=== PATIENT | female | born 1990 | race African-American/Black ===

== ENCOUNTER 2017-10-07 15:06 | Emergency (ER) | payer OTHER ==
[~2017-10-07] VITALS: Ht 170.2 cm; Wt 113.4 kg
[2017-10-07 15:11] VITALS: BP 133/81
[2017-10-07] MEDS ORDERED: Albuterol ud Inhalation HHN ONE (15:30)
--- NOTE | 2017-10-07 16:05 | Emergency Room Report ---
History of Present Illness General Chief Complaint: General Complaint Source: Patient Present Illness HPI 27-year-old female presents to the emergency department complaining of difficulty sleeping x2 weeks which has worsened over the last 3 days. 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 Patient reports that she was prescribed Valium by her primary physician and she states that it only works the first few days. She reports only sleeping up to 3 hours each time. Denies orthopnea, fevers, chills. Denies drug use. Reports some caffeine intake only when at work. Denies history of insomnia in the past for psychiatric diagnoses. Denies hallucinations or delusions no suicidal ideology or homicidal ideology. Denies CP, Palpitations, LOC or AMS. Allergies: Coded Allergies: No Known Allergies (Unverified , 10/07/17) Patient History Past Medical History: see triage record Past Surgical History: none Pertinent Family History: none Now: No Reviewed Nursing Documentation: PMH: Agreed, PSxH: Agreed Nursing Documentation-PMH Past Medical History: No Stated History Review of Systems All Other Systems: negative except mentioned in HPI Physical Exam Vital Signs Date Time Temp Pulse Resp B/P (MAP) Pulse Ox O2 Delivery O2 Flow Rate FiO2 10/07/17 15:09 97.2 87 20 133/81 96 Room Air Sp02 EP Interpretation: reviewed, normal General Appearance: no apparent distress, alert, GCS 15, non-toxic Head: normocephalic, atraumatic Eyes: bilateral eye normal inspection ENT: hearing grossly normal, normal voice Neck: full range of motion Respiratory: lungs clear, normal breath sounds, speaking full sentences Cardiovascular #1: regular rate, rhythm Rectal: deferred Musculoskeletal: back normal, gait/station normal, normal range of motion Neurologic: alert, oriented x3, responsive, motor strength/tone normal, sensory intact, normal gait, speech normal, grossly normal Psychiatric: judgement/insight normal, no suicidal/homicidal ideation, anxious - worried affect, not overly anxious or hyperactive. Skin: normal color, no rash, warm/dry, well hydrated Medical Decision Making PA Attestation Dr. Tapia is my supervising Physician whom patient management has been discussed with. Diagnostic Impression: Primary Impression: Sleep disorder Additional Impression: Sleep disorder, shift work ER Course 27-year-old female presents to the emergency department complaining of difficulty sleeping x2 weeks which has worsened over the last 3 days. 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 Patient reports that she was prescribed Valium by her primary physician and she states that it only works the first few days. She reports only sleeping up to 3 hours each time. Denies orthopnea, fevers, chills. Denies drug use. Reports some caffeine intake only when at work. Denies history of insomnia in the past for psychiatric diagnoses. Denies hallucinations or delusions no suicidal ideology or homicidal ideology. Denies CP, Palpitations, LOC or AMS. Ddx considered but are not limited to: At shift work sleep disorder, insomnia, sleep anxiety, drug seeking just to name a few. Vital signs: are WNL, pt. is afebrile H&PE are most consistent with shift work sleep disorder and sleep anxiety. ORDERS: none required at this time, the diagnosis is clinical ED INTERVENTIONS: None required at this time. - D/w pt. that Psych eval is necessary, or medication management needs to be done by her PCP. d/w pt. she will get qty 2 of Restoril, and that she cannot take restoril and valium or with alcohol . d/w pt. to take once lying in bed. DISCHARGE: At this time pt. is stable for d/c to home. Will provide printed patient care instructions, and any necessary prescriptions. Care plan and follow up instructions have been discussed with the patient prior to discharge. Last Vital Signs Date Time Temp Pulse Resp B/P (MAP) Pulse Ox O2 Delivery O2 Flow Rate FiO2 10/07/17 15:11 97.2 20 133/81 96 Room Air 10/07/17 15:09 87 Disposition: HOME, SELF-CARE Condition: Stable Scripts Temazepam (RESTORIL*) 30 Mg Capsule 30 MG ORAL BEDTIME, #2 CAP 0 Refills Prov: Nikki Raymond. 10/07/17 Patient Instructions: Medical Screening Exam Additional Instructions: Take medications as directed. Follow up with a Mental Health Specialist/ Psychiatrist in 3 days, even if your symptoms have resolved. --Please review [facility] resource information provided Return sooner to ED if new symptoms occur, or current symptoms become worse. - Please note that this Emergency Department Report was dictated using Dragon nut picker technology software, occasionally this can lead to erroneous entry secondary to interpretation by the dictation equipment. Nikki Raymond Oct 07, 2017 16:05
[2017-10-07] MEDS ORDERED: RESTORIL30 MG ORAL (16:07)
== END 2017-10-07 16:40 | disposition home or self-care (01) ==
LOC: EMR 16:10
DX: G47.09 Other insomnia (principal)
CPT/HCPCS: 99283